=== PATIENT | female | born 1995 | race Caucasian/White ===

== ENCOUNTER 2022-12-15 04:19 | Inpatient (IN) | payer MEDICAID, SELFPAY ==
[2022-12-15] VITALS (105 sets, daily range): BP systolic 105–149; BP diastolic 57–79; PULSE 40–169; RESP 16; TEMP 36.5–37.1; O2SAT 79–100; BMI 34.7
[2022-12-15] MEDS: Lactated Ringers 1,000 ML 999 ML IV (04:30)
[2022-12-15 05:00] LABS: Absolute Lymphocyte Count 0.95 X10^3/uL (0.83-4.51); Basophil# 0.06 X10^3/uL; Basophil% 0.2 % (0-1); Hemoglobin 12.4 g/dL (12.0-15.0); Lymphocyte # 0.95 X10^3/ul (0.83-4.51); Lymphocyte % 3.1 % (19-41); Mean Corp Hgb Conc 33.5 g/dL (32-36); Mean Corpuscular Hgb 27.9 pg (27.0-32.0); Mean Corpuscular Volume 83.1 fL (81-99); Mean Platelet Vol. 9.9 fl (6.2-12.0); Monocyte# 1.96 X10^3/uL; Monocyte% 6.5 % (0-10); NRBC Flagged by Analyzer 0 % (0-5); Neutrophil # 27.03 X10^3/uL (2.7-7.7); Neutrophil % 89.3 % (47-70); POSITIVE COUNT YES; POSITIVE DIFFERENTIAL YES; Platelet Count 308 K/mm3 (150-450); RBC Distribution Width CV 15.1 % (11.6-14.6); RBC Distribution Width SD 45.5 fl (35.1-43.9); Red Blood Count 4.45 M/mm3 (4.2-5.4)
[2022-12-15 05:10] LABS: Differential Indicated SCAN CRITERIA MET; White Blood Count 30.3 K/mm3 (4.4-11.0)
[2022-12-15] MEDS: Lactated Ringers 1,000 ML 100 ML IV ×2 (05:30→15:49)
--- NOTE | 2022-12-15 05:34 | PCM.HP.OB ---
HPI - General General Date of Admission: 12/15/22 Date of Service: 12/15/22 Chief Complaint: home delivery HPI Narrative JAIR BE, is a 27 F who presents to the ER after having a home with a electric relay tester. She was seen in our office by Harmony Ovalle CNM at 11 weeks and 18 weeks gestation. She had NOB labs and an anatomy US performed. Per chart review she did not want to follow the recommended schedule, and she did not return for the recommended visits. She did not have a GBS performed or the diabetic screening. She went into labor at home with her electric relay tester. She reports labor was less than 24 hours. Per legal intern she was pushing for 2-3 hours and had an uneventful vaginal delivery. The legal intern states she had to tend to the , and she did not deliver the placenta. The placenta was delivered spontaneously and the delivery of the placenta was noted by EMS. The placenta was delivered 1.5 hours after delivery of the . PFSH PFSH Allergy/AdvReac Type Severity Reaction Status Date / Time Penicillins Allergy Hives Verified 12/15/22 05:07 Vital Signs Vital Signs Vital Signs: 12/15/22 05:15 12/15/22 05:15 12/15/22 05:15 Pulse Rate 131 H Blood Pressure 114/69 BP Systolic 114 BP Diastolic 69 Pulse Ox 98 12/15/22 05:20 12/15/22 05:20 12/15/22 05:25 Pulse Rate 134 H 145 H Blood Pressure BP Systolic BP Diastolic Pulse Ox 99 12/15/22 05:25 12/15/22 05:30 12/15/22 05:30 Pulse Rate 121 H Blood Pressure 111/70 BP Systolic 111 BP Diastolic 70 Pulse Ox 100 Physical Exam Const alert and no apparent distress General Appearance: comfortable HEENT normocephalic Resp normal respiratory effort GI soft to palpation, non-tender and non-distended GI Narrative: In the ER the fundus was initially boggy and at U+2 Once on L&D the fundus was firm and at U-2 Narrative: Placental membranes present in the vagina and removed manually. Second degree perineal laceration was noted to be bleeding. Vagina and cervix appear intact Labs Labs Labs: Blood Type Pending Antibody Screen Pending Hct 37.0 % (37-47) Hgb 12.4 g/dL (12.0-15.0) Syphilis Total Ab Pending Assessment & Plan (1) Limited care: PLAN: - Patient did not follow up in our office for the recommended visits. She delivered at home with a electric relay tester. She presented to the ER as needed respiratory support. (2) state: PLAN: - Routine care - Recommend pitocin and patient declines at this time. She understands risk of bleeding and need for a blood transfusion - Recommend 1 dose of antibiotic given placenta was not delivered until 1.5 hours after delivery of infant, and retained membranes removed from the vagina on exam. Patient declines and understands risk of chorioamnioitis and sepsis - Bedside TAUS performed and possible retained POC's noted. Uterus was initially boggy in the ER and placental membranes were removed from the vagina on exam. Placenta was examined and there appears to be a piece of placenta missing, and the placenta does not appear to be completely intact. Recommend an EUA and a D&C for further evaluation given this. Reviewed r/b/a of a D&C. Discussed evaluation is difficult given I was not present for delivery of infant or placenta. Discussed limitations with a bedside ultrasound for evaluation of POC's. Discussed if there is retained POC's there is a risk of hemorrhage, need for a blood transfusion, infection, sepsis and . She declines an EUA and D&C for further evaluation and understands this is going against medical advice. She understands by declining pitocin and antibiotics this is also going against medical advice. 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
[2022-12-15 06:46] LABS: Differential Comment SCANNED
[2022-12-15 07:07] LABS: ALB/GLOB Ratio 0.7 RATIO (0.9-2.4); AST(SGOT) 43 U/L (15-37); Alanine Aminotransfer ALT/SGPT 27 U/L (13-56); Albumin, Serum 2.1 g/dL (3.2-5.0); Alkaline Phosphatase 160 U/L (45-117); Anion Gap 8 (5-15); BUN 11 mg/dL (7-18); BUN/Creat Ratio 16.9 RATIO (10-20); Calcium,Total 8.3 mg/dL (8.5-10.1); Chloride 109 mmol/L (98-107); Creatinine, Serum 0.65 mg/dL (0.55-1.02); EST Glomerular Filtration Rate 116 mL/min (>60); Est Glom Filt Rate - Afr Amer 141 mL/min (>60); Estimated Creatinine Clearance 102.82 ml/min; Globulin 2.9 g/dL (2.2-4.2); Glucose 143 mg/dL (74-106); Potassium 4.1 mmol/L (3.5-5.1); Sodium Level 135 mmol/L (136-145)
[2022-12-15 07:38] LABS: Syphilis Antibodies Non-reactive
[2022-12-15 10:22] LABS: Absolute Lymphocyte Count 1.88 X10^3/uL (0.83-4.51); Basophil# 0.04 X10^3/uL; Basophil% 0.2 % (0-1); Hematocrit 28.3 % (37-47); Hemoglobin 9.4 g/dL (12.0-15.0); Lymphocyte # 1.88 X10^3/ul (0.83-4.51); Mean Corp Hgb Conc 33.2 g/dL (32-36); Mean Corpuscular Hgb 28.1 pg (27.0-32.0); Mean Corpuscular Volume 84.5 fL (81-99); Mean Platelet Vol. 9.6 fl (6.2-12.0); Monocyte# 1.48 X10^3/uL; Monocyte% 6.3 % (0-10); NRBC Flagged by Analyzer 0 % (0-5); Neutrophil # 20.04 X10^3/uL (2.7-7.7); Neutrophil % 84.7 % (47-70); POSITIVE DIFFERENTIAL YES; Platelet Count 242 K/mm3 (150-450); RBC Distribution Width CV 15.2 % (11.6-14.6); RBC Distribution Width SD 46.1 fl (35.1-43.9); Red Blood Count 3.35 M/mm3 (4.2-5.4); White Blood Count 23.6 K/mm3 (4.4-11.0)
[2022-12-15 10:39] LABS: Differential Indicated SCAN CRITERIA MET
[2022-12-15 11:10] LABS: Differential Comment SCANNED
[2022-12-16 05:00] VITALS: BP 116/77; PULSE 107; RESP 16; TEMP 36.6; O2SAT 99
[2022-12-16 05:56] LABS: Absolute Lymphocyte Count 2.91 X10^3/uL (0.83-4.51); Absolute Neutrophil Count 11.1 X10^3/uL (2.0-7.7); Basophil# 0.04 X10^3/uL; Basophil% 0.3 % (0-1); Eosinophil# 0.02 X10^3/uL; Eosinophils% 0.1 % (0-5); Hematocrit 24.8 % (37-47); Hemoglobin 8.1 g/dL (12.0-15.0); Lymphocyte # 2.91 X10^3/ul (0.83-4.51); Lymphocyte % 19.4 % (19-41); Mean Corp Hgb Conc 32.7 g/dL (32-36); Mean Corpuscular Hgb 28.7 pg (27.0-32.0); Mean Corpuscular Volume 87.9 fL (81-99); Mean Platelet Vol. 9.7 fl (6.2-12.0); Monocyte# 0.81 X10^3/uL; Monocyte% 5.4 % (0-10); NRBC Flagged by Analyzer 0 % (0-5); Neutrophil # 11.07 X10^3/uL (2.7-7.7); Neutrophil % 73.9 % (47-70); Platelet Count 215 K/mm3 (150-450); RBC Distribution Width CV 15.9 % (11.6-14.6); RBC Distribution Width SD 50.6 fl (35.1-43.9); Red Blood Count 2.82 M/mm3 (4.2-5.4)
[2022-12-16 06:24] LABS: ALB/GLOB Ratio 0.7 RATIO (0.9-2.4); AST(SGOT) 54 U/L (15-37); Alanine Aminotransfer ALT/SGPT 35 U/L (13-56); Albumin, Serum 2.2 g/dL (3.2-5.0); Alkaline Phosphatase 129 U/L (45-117); Anion Gap 4 (5-15); BUN 8 mg/dL (7-18); Calcium,Total 7.9 mg/dL (8.5-10.1); Chloride 112 mmol/L (98-107); Creatinine, Serum 0.57 mg/dL (0.55-1.02); EST Glomerular Filtration Rate 134 mL/min (>60); Est Glom Filt Rate - Afr Amer 163 mL/min (>60); Estimated Creatinine Clearance 117.25 ml/min; Glucose 98 mg/dL (74-106); Protein, Total 5.2 g/dL (6.4-8.2); Sodium Level 138 mmol/L (136-145)
--- NOTE | 2022-12-16 06:54 | PN.OBGYN_ITS ---
Subjective Subjective Pt is doing well this morning. She offers no complaints. Lochia is normal. She is ambulating and voiding without difficulty. She denies lightheadedness, dizziness, CP, SOB, leg pain. She denies fevers or chills. She desires discharge today as was transferred. Objective Data Objective Data Vital Signs: Vital Signs Temp Pulse Resp BP Pulse Ox O2 Del Method 97.8 F 107 H 16 116/77 99 Room Air 12/16/22 05:00 12/16/22 05:00 12/16/22 05:00 12/16/22 05:00 12/16/22 05:00 12/16/22 05:00 Oxygen Delivery Method Room Air Weight: 190 lb Body Mass Index (BMI) 34.7 Intake & Output: Intake and Output for Last 24 Hours 12/14/22 12/15/22 12/16/22 23:59 23:59 23:59 Intake Total 2138.33 / 2138.33 Output Total 3500 / 3500 Balance -1361.67 / -1361.67 Lab / Micro Data 12/16/22 05:15 12/16/22 05:15 Labs: Laboratory Results - last 24 hr 12/15/22 04:25: Syphilis Total Ab Non-reactive 12/15/22 06:35: Sodium 135 L, Potassium 4.1, Chloride 109 H, Carbon Dioxide 18.0 L, Anion Gap 8, BUN 11, Creatinine 0.65, Estim Creat Clear Calc 102.82, Est GFR (MDRD) Af Amer 141, Est GFR (MDRD) Non-Af 116, BUN/Creatinine Ratio 16.9, Glucose 143 H, Calcium 8.3 L, Total Bilirubin 0.50, AST 43 H, ALT 27, Alkaline Phosphatase 160 H, Total Protein 5.0 L, Albumin 2.1 L, Globulin 2.9, Albumin/Globulin Ratio 0.7 L 12/15/22 10:02: WBC 23.6 H, RBC 3.35 L, Hgb 9.4 L, Hct 28.3 L, MCV 84.5, MCH 28.1, MCHC 33.2, RDW Std Deviation 46.1 H, RDW Coeff of Suzy 15.2 H, Plt Count 242, MPV 9.6, Immature Gran % (Auto) 0.800, Neut % (Auto) 84.7 H, Lymph % (Auto) 8.0 L, [place] % (Auto) 6.3, Eos % (Auto) 0.0, Baso % (Auto) 0.2, Absolute Neuts (auto) 20.0 H, Absolute Lymphs (auto) 1.88, Nucleated RBC % 0, Differential Comment SCANNED 12/16/22 05:15: WBC 15.0 H, RBC 2.82 L, Hgb 8.1 L, Hct 24.8 L, MCV 87.9, MCH 28.7, MCHC 32.7, RDW Std Deviation 50.6 H, RDW Coeff of Suzy 15.9 H, Plt Count 215, MPV 9.7, Immature Gran % (Auto) 0.900, Neut % (Auto) 73.9 H, Lymph % (Auto) 19.4, [place] % (Auto) 5.4, Eos % (Auto) 0.1, Baso % (Auto) 0.3, Absolute Neuts (auto) 11.1 H, Absolute Lymphs (auto) 2.91, Nucleated RBC % 0, Sodium 138, Potassium 4.0, Chloride 112 H, Carbon Dioxide 22.0, Anion Gap 4 L, BUN 8, Creatinine 0.57, Estim Creat Clear Calc 117.25, Est GFR (MDRD) Af Amer 163, Est GFR (MDRD) Non-Af 134, BUN/Creatinine Ratio 14.0, Glucose 98, Calcium 7.9 L, Total Bilirubin 0.20, AST 54 H, ALT 35, Alkaline Phosphatase 129 H, Total Protein 5.2 L, Albumin 2.2 L, Globulin 3.0, Albumin/Globulin Ratio 0.7 L Physical Exam Const alert and no apparent distress General Appearance: comfortable HEENT normocephalic Resp normal respiratory effort GI soft to palpation, non-tender and non-distended GI Narrative: FF@U Extremity normal to inspection and no calf tenderness Assessment & Plan (1) state: PLAN: Patient is from a home vaginal delivery. She is doing well and desires discharge given was transferred for further care. She is meeting milestones for discharge. A bedside transabdominal ultrasound was again performed with concern for retained products of conception in the lower uterine segment. Discussed again concern for retained products of conception. Discussed risks of bleeding, need for blood transfusion, infection, sepsis. The patient understands this and wishes to go home and monitor her symptoms herself. She is agreeable to follow-up in our office. She understands that by not proceeding with an EUA and a D&C she is going against medical advice. She states she will monitor herself closely at home and call with any changes. (2) Vaginal delivery: (3) Acute blood loss anemia: PLAN: Suspect tachycardia secondary to dehydration upon presentation, as well as acute blood loss anemia. Bleeding has been scant since her admission here. Given placenta was not delivered until 1 and half hours after delivery, suspect bleeding was significant at that time. The patient denies any symptoms of anemia this morning. We will give a dose of IV Venofer and repeat labs in the office. (4) LFT elevation: PLAN: - Mild elevated and stable this AM. BP's have been normal. She has no RUQ pain. Will recheck in the office and if still elevated discussed RUQ US and hepatitis panel, as well as possible GI consultation.
--- NOTE | 2022-12-16 07:04 | DCINST_ITS ---
Discharge Instructions Diet Discharge Diet: No restrictions Activity Discharge Activity: May Shower May resume sexual activity in: 6 weeks Ice area for (Minutes): 15 Weight Bearing Status: Weight bearing as tolerated Lifting Restrictions: nothing heavier than baby Dressing / Incision Call your doctor if you observe: Fever of 101 or Higher, Coldness, Increased Pain, Numbness or Tingling, Change in Color, Inability to urinate, Inability to have a bowel movement, Using more than 1 pad per hour, Shortness of breath, Dizziness, Fainting spells, Swelling in the ankles, Chest pain, Increased palpitations (irregular heartbeat), Calf discomfort, Uncontrolled pain and - (Check your temperature daily and call if 100.4 or greater. Call if you generally do not feel well. Call with fevers, chills, worsening abdominal pain, increased bleeding, vaginal discharge.) Follow Up Care When: 1-2 weeks 6 weeks Test Results: Test results from this visit will be discussed in further detail at your follow- up appointment, if applicable. Discharge Plan Admission Admit Date/Time: 12/15/22 04:19 Attending Provider: Katelyn Tristan Primary Care Provider: Care Physician,Gail Primary Instructions Patient Instructions: After a Vaginal Discharge Orders/Prescriptions Referrals / Follow Up: Care Physician,Gail Primary [Primary Care Provider] - Disposition Disposition (needs filled in before D/C Order can be placed): Home, Self Care
[2022-12-16] MEDS: Iron Sucrose Complex 200 MG in 0.9% Normal Saline (100mL Bag) 100 ML 220 MG IV (08:06)
[2022-12-16 08:08] VITALS: BP 119/84; PULSE 119; RESP 16; TEMP 36.4; O2SAT 100
[2022-12-18 08:52] LABS: Pathologist Review Reviewed
== END 2022-12-16 10:25 | disposition home or self-care (01) | DRG 769 ==
PROVIDERS: Admitting Provider Obstetrics & Gynecology; Visit Provider Obstetrics & Gynecology
DX: O73.1 Retained portions of placenta and membranes, without hemorrhage (principal); D62 Acute posthemorrhagic anemia; O99.13 Other diseases of the blood and blood-forming organs and certain disorders involving the immune mechanism complicating the puerperium; E86.0 Dehydration; D72.829 Elevated white blood cell count, unspecified; O70.1 Second degree perineal laceration during delivery; O90.81 Anemia of the puerperium; Z91.198 Patient's noncompliance with other medical treatment and regimen for other reason; O99.285 Endocrine, nutritional and metabolic diseases complicating the puerperium
CPT/HCPCS: 80053; 85025; 86780; 86850; 86900; 86901; J1756; J7030; J7120; A4216